=== PATIENT | female | born 1980 | race African-American/Black ===

== ENCOUNTER 2020-01-25 11:52 | Emergency (ER) | payer SELFPAY ==
[~2020-01-25] VITALS: Ht 175.3 cm; Wt 79.5 kg
[2020-01-25] MEDS: SODIUM CHLORIDE 0.9% 1,000 ML IV ONE (12:57)
[2020-01-25 13:12] LABS: BASOPHILS % (AUTO) 0.6 % (0.0-2.0); EOSINOPHILS % (AUTO) 0.3 % (1.0-6.0); HEMATOCRIT 36.9 % (36-46); HEMOGLOBIN 11.7 g/dL (12.0-16.0); LYMPHOCYTES # (AUTO) 1.4 K/uL (1.0-4.8); LYMPHOCYTES % (AUTO) 10.4 % (22.0-44.0); MEAN CORPUSCULAR HEMOGLOBIN 23.8 pg (26.0-34.0); MEAN CORPUSCULAR HGB CONC 31.7 G/dL (31.0-37.0); MEAN CORPUSCULAR VOLUME 75 fL (80-100); MONOCYTES # (AUTO) 0.8 K/uL (0.1-1.0); MONOCYTES % (AUTO) 6.1 % (2.0-9.0); NEUTROPHILS # (AUTO) 10.8 K/uL (1.8-7.7); NEUTROPHILS % (AUTO) 82.6 % (40.0-70.0); PLATELET COUNT (AUTO) 231 K/uL (150-450); RED CELL DISTRIBUTION WIDTH 13.2 % (11.5-14.5)
[2020-01-25 13:40] LABS: ANION GAP 11 mmol/L (8-16); CALCIUM, TOTAL 9.2 mg/dL (8.8-10.5); CARBON DIOXIDE 26 mmol/L (22-29); CHLORIDE 100 mmol/L (98-107); CREATININE 0.84 mg/dL (0.60-1.30); GLOMERULAR FILTR. RATE CALC > 60 mL/min (>60); GLUCOSE,RANDOM 90 mg/dL (70-110); POTASSIUM 3.6 mmol/L (3.5-5.1); SODIUM SERUM 137 mmol/L (136-145); UREA NITROGEN, BLOOD 8 mg/dL (7-18)
[2020-01-25 13:50] LABS: ALANINE AMINOTRANSFERASE 18 U/L (12-78); ALBUMIN 4.1 g/dL (3.4-5.0); ALKALINE PHOSPHATASE 108 U/L (46-116); ASPARTATE AMINOTRANSFERASE 13 U/L (15-37); BILIRUBIN,TOTAL 0.4 mg/dL (0.1-1.0); HCG,QUANTITATIVE < 1 mIU/mL (0-6); LIPASE 54 U/L (73-393); TOTAL PROTEIN, SERUM 8.1 g/dL (6.4-8.2)
[2020-01-25] MEDS: KETOROLAC TROMETHAMINE 30 MG/ML VIAL IVP ONE (14:59)
[2020-01-25] MEDS: DICYCLOMINE HCL 10 MG CAPSULE PO ONE (15:07)
[2020-01-25 16:06] VITALS: BP 110/70
== END 2020-01-25 16:17 | disposition home or self-care (01) ==
LOC: EMS 11:54
DX: K52.9 Noninfective gastroenteritis and colitis, unspecified (principal); Z91.011 Allergy to milk products
CPT/HCPCS: 36415; 74176; 80053; 83690; 84702; 85025; 96361; 96374; 99285; J1885; J7030